=== PATIENT | male | born 1995 | race Hispanic/Latino ===

== ENCOUNTER 2017-03-15 15:49 | Emergency (ER) | payer SELFPAY ==
[~2017-03-15] VITALS: Ht 175.3 cm; Wt 106.6 kg
[2017-03-15] MEDS ORDERED: HYDROCODONE/APAP 10MG-325MG TAB PO ONE (17:00)
--- NOTE | 2017-03-15 19:14 | Diagnostic Imaging Report ---
Exam: Right left hand 3 views each History: Pain Comparison: None. Findings: No fracture or malalignment. Joint spaces preserved. No abnormal soft tissue calcification or soft tissue defect. Impression: No acute osseous abnormality Signed by: Dr. Walter Bey M.D. on 03/15/2017 7:10 PM
--- NOTE | 2017-03-15 19:26 | Diagnostic Imaging Report ---
PROCEDURE:HAND RIGHT 3 VIEWS AP \T\ LAT COMPARISON:None. INDICATIONS:TRAUMA TO BOTH HANDS FINDINGS: There are no acute, displaced fractures, dislocations, lytic or blastic lesions. The bones are well-mineralized. Joint spaces are preserved. The soft-tissues are unremarkable. CONCLUSION: No acute abnormalities. Lamin Mccormack M.D. Dictated by: Lamin Mccormack M.D. on 03/15/2017 at 19:34 Electronically approved by: Lamin Mccormack M.D. on 03/15/2017 at 19:34
[2017-03-15 21:52] VITALS: BP 145/87
[2017-03-15] MEDS ORDERED: HYDROCODONE/APAP 10MG-325MG TAB ONE (21:53)
== END 2017-03-15 22:00 | disposition home or self-care (01) ==
LOC: ER 15:49
DX: S60.222A Contusion of left hand, initial encounter (principal); S60.221A Contusion of right hand, initial encounter; W22.09XA Striking against other stationary object, initial encounter; X83.8XXA Intentional self-harm by other specified means, initial encounter; Y92.008 Other place in unspecified non-institutional (private) residence as the place of occurrence of the external cause
CPT/HCPCS: 99283